=== PATIENT | female | born 1965 | race Asian ===

== ENCOUNTER 2022-02-14 17:53 | Emergency (ER) | payer SELFPAY ==
[2022-02-14 18:11] VITALS: BP 155/83; PULSE 65; RESP 18; TEMP 36.2; O2SAT 99; BMI 25.3
--- NOTE | 2022-02-14 18:16 | DI.RAD.S_ITS ---
PROCEDURE: XR SOFT TISSUE NECK INDICATIONS: possible foreign body TECHNIQUE: 2 views of the neck were acquired. COMPARISON: None. FINDINGS: Airway: The airway appears patent. Soft tissues: No radiopaque foreign bodies are seen. Prevertebral soft tissues are normal in thickness. The epiglottis and aryepiglottic folds appear normal. No soft tissue gas. The visualized lung apices are unremarkable. Bones: No suspicious bony lesions. Visualized cervical spine is normally aligned. IMPRESSION: No significant neck soft tissue abnormality is seen. No radiopaque foreign bodies are seen. If it would be helpful for clinical management decision making in this patient with this given history, please consider a dedicated soft tissue neck CT with IV contrast for further evaluation. Dictated by: Blake Kent M.D. on 02/14/2022 at 17:42 Approved by: Blake Kent M.D. on 02/14/2022 at 17:43
== END 2022-02-14 21:42 | disposition left against medical advice (07) ==
PROVIDERS: Emergency Provider Emergency Medicine
DX: T18.9XXA Foreign body of alimentary tract, part unspecified, initial encounter (principal); X58.XXXA Exposure to other specified factors, initial encounter
CPT/HCPCS: 70360; 99281